=== PATIENT | male | born 1960 | race African-American/Black ===

== ENCOUNTER 2021-01-30 17:17 | Emergency (ER) | payer BC ==
[2021-01-30 17:36] VITALS: BMI 26.0
[2021-01-30] MEDS ORDERED: MAG HYDROX/AL HYDROX/SIMETH 30 ML UNIT-DOSE CUP PO ONE (18:11)
[2021-01-30] MEDS ORDERED: ASPIRIN 81 MG CHEWABLE TABLETS PO ONE (18:12)
[2021-01-30] MEDS ORDERED: FAMOTIDINE 10 MG TABLET PO ONE (18:12)
[2021-01-30] MEDS ORDERED: ASPIRIN 81 MG CHEWABLE TABLETS ONE (18:46)
[2021-01-30] MEDS ORDERED: MAG HYDROX/AL HYDROX/SIMETH 30 ML UNIT-DOSE CUP ONE (18:46)
[2021-01-30] MEDS ORDERED: FAMOTIDINE 20 MG TABLET PO ONE (18:49)
[2021-01-30 19:29] LABS: BASO % 0.8 % (0-2.0); EOS % 1.6 % (0-4.5); HEMATOCRIT 40.8 % (35.4-49); HEMOGLOBIN 13.4 GM/dL (11.7-16.9); LYMPH % 23.2 % (8-40); MCH 27.1 pg (25.7-33.7); MCHC 32.8 g/dl (32.0-35.9); MEAN CELL VOLUME 82.5 fl (80-96); MEAN PLT VOLUME 7.9 fl (7.5-11.1); MONO % 11.6 % (3.8-10.2); NEUT % 62.8 % (42.8-82.8); PLATELET COUNT 304 10^3/uL (134-434); RBC 4.95 M/mm3 (4.00-5.60); RDW 13.3 % (11.9-15.9); WHITE BLOOD COUNT 5.6 K/mm3 (4.0-10.0)
[2021-01-30 19:47] LABS: CHLORIDE 107 mmol/L (98-107); SODIUM 140 mmol/L (136-145)
[2021-01-30 19:49] LABS: ALBUMIN 4.1 g/dl (3.4-5.0); ANION GAP 7 MMOL/L (8-16); CALCIUM 9.5 mg/dL (8.5-10.1); CO2 26 mmol/L (21-32); GLUCOSE,RANDOM 88 mg/dL (74-106)
[2021-01-30 19:52] LABS: SGOT/AST 16 U/L (15-37); SGPT/ALT 23 U/L (13-61)
[2021-01-30 19:53] LABS: CREATININE 0.9 mg/dL (0.55-1.3)
[2021-01-30 19:54] LABS: BILIRUBIN,TOTAL 0.3 mg/dL (0.2-1); TOT PROT 7.7 g/dl (6.4-8.2)
[2021-01-30 19:55] LABS: ALK PHOS 62 U/L (45-117)
[2021-01-30 23:06] VITALS: BP 110/78; PULSE 72; TEMP 98.5
== END 2021-01-30 23:06 | disposition home or self-care (01) ==
LOC: JER 17:17
DX: R07.9 Chest pain, unspecified (principal)
CPT/HCPCS: 36415; 71046-TC-FY; 80053; 82550; 82553; 84443; 84484; 85025; 93005; 93010; 99285-25; C9803; U0003; U0005